=== PATIENT | female | born 1980 | race Caucasian/White ===

== ENCOUNTER 2017-11-08 20:58 | Emergency (ER) | payer OTHER ==
[2017-11-08] MEDS ORDERED: DIPH/PERTUSS(ACELL)/TETANUS VAC/PF 0.5 ML SYR (>=10YO) IM ONE (22:58)
--- NOTE | 2017-11-08 22:58 | ER Document Report ---
HPI - HPI Patient complains to provider of: left index finger injury Context: Patient is a 37-year-old female comes emergency department for chief complaint of laceration to her left index finger, she was using a telephone coin box collector and it slipped and she accidentally cut herself. She denies any other injuries. Tetanus is not up-to-date within 5 years. Past Medical History - General Information source: Patient - Social History Smoking Status: Never Smoker Frequency of alcohol use: None Drug Abuse: None Lives with: Family Family History: Reviewed & Not Pertinent - Medical History Medical History: Negative Surgical Hx: Negative - Immunizations Immunizations up to date: No Hx Diphtheria, Pertussis, Tetanus Vaccination: Yes Vertical Provider Document - CONSTITUTIONAL General Appearance: WD/WN, No Apparent Distress - HEENT HEENT: Atraumatic, Normocephalic - NECK Neck: Normal Inspection - RESPIRATORY Respiratory: Breath Sounds Normal, No Respiratory Distress - CARDIOVASCULAR Cardiovascular: Regular Rate, Regular Rhythm - GI/ABDOMEN Gastrointestinal: Abdomen Soft, Abdomen Non-Tender - MUSCULOSKELETAL/EXTREMETIES Musculoskeletal/Extremeties: MAEW, FROM, Tender - There is a linear horizontal 0.5 cm superficial laceration just past the PIP joint of the left index finger. Normal range of motion of the finger, normal sensation and capillary refill, normal upper extremity exam otherwise. - NEURO Level of Consciousness: Awake, Alert, Appropriate - DERM Integumentary: Warm, Dry, No Rash Course - Re-evaluation Re-evalutation: Very small superficial laceration with no evidence of deep cut or injury. Discussed with patient. Because of the superficial nature it is difficult to place sutures to repair this, she states it keeps bleeding. As result Dermabond was placed, she was even given a protective dressing/finger splint on request. Discussed care, follow-up, return precautions. Patient states understanding and agreement. Procedures - Laceration/Wound Repair Left index finger Wound length (cm): 0.5 Wound's Depth, Shape: Superficial, Linear Laceration pre-procedure: Sterile PPE donned, Sterile drapes applied, Shur- Clens applied Wound Repaired With: Dermabond Post-procedure wound care: Sterile dressing applied Post-procedure NV exam normal: Yes Complications: No Discharge - Discharge Clinical Impression: Laceration of left index finger Qualifiers: Encounter type: initial encounter Damage to nail status: without damage Foreign body presence: without foreign body Qualified Code(s): S61.211A - Laceration without foreign body of left index finger without damage to nail, initial encounter Condition: Stable Disposition: HOME, SELF-CARE Instructions: Tetanus Immunization Given ([facility]) Additional Instructions: The laceration has been repaired with Dermabond. This usually falls off in 3-5 days, if it will not come off after that you can apply topical antibiotic to remove it. You can clean gently with soap and water but avoid soaking or scrubbing the area. I recommend wearing the protective dressing for the next 2 days and then you can remove and resume normal activity. Return to emergency department for any concerning symptoms including redness or swelling of the finger.
[2017-11-08 23:44] VITALS: BP 127/62
== END 2017-11-08 23:42 | disposition home or self-care (01) ==
LOC: ER 20:58
PROC: 0HQGXZZ Repair Left Hand Skin, External Approach (ICD-10-PCS; principal; 2017-11-08)
DX: S69.92XA Unspecified injury of left wrist, hand and finger(s), initial encounter (principal); W26.8XXA Contact with other sharp object(s), not elsewhere classified, initial encounter; Z23 Encounter for immunization
CPT/HCPCS: 90471; 90715; 99282